=== PATIENT | male | born 1965 | race Hispanic/Latino ===

== ENCOUNTER 2016-12-15 10:03 | Inpatient (IN) | payer SELFPAY ==
[~2016-12-15] VITALS: Ht 177.8 cm; Wt 100.9 kg
[2016-12-15 10:27] VITALS: BP 129/84; TEMP 98.8
[2016-12-15] MEDS ORDERED: INDOMETHACIN50 MG PO (10:28)
[2016-12-15 11:17] LABS: PLATELET COUNT 292 K/uL (142-355)
[2016-12-15 11:32] LABS: POTASSIUM 3.5 mmol/L (3.6-5.2); SODIUM 138 mmol/L (136-145)
[2016-12-15 16:00] VITALS: BP 113/65; TEMP 98.7
[2016-12-15 17:53] VITALS: BP 106/67; TEMP 98.1; Ht 177.8 cm; Wt 100.9 kg
--- NOTE | 2016-12-15 18:18 | NUR ---
PT ARRIVED TO ROOM 103 FROM ER AT 1334 BY WHEELCHAIR, ACCOMPANIED BY LANDY GLASER, RN, PT ORIENTED TO PERSON, PLACE AND TIME, PT C/O PAIN TO LEFT FOOT, POSITIONED IN BED WITH BLE ELEVATED, PT C/O PAIN TO LEFT FOOT PRS 7, IVF ATTEMPTED IN PRESENT IV, IV INFILTRATED, IV D/C'D AND NEW IV STARTED AFTER 3RD ATTEMPT, IVF INFUSING WITHOUT DIFFICULTY AT THIS TIME. PAIN MEDICINE GIVEN. PT RESTING QUIETLY. FAMILY IN ROOM TO ANSWER QUESTIONS ABOUT PTS HISTORY.
[2016-12-15] MEDS ORDERED: LORTAB 5-325 MG1 TAB PO (18:25)
[2016-12-15] MEDS ORDERED: XANAX XR1 MG OR (18:27)
[2016-12-15 20:00] VITALS: BP 117/54; TEMP 97.8
[2016-12-16] VITALS: BP 125/74; TEMP 99.5
[2016-12-16 04:00] VITALS: BP 125/80; TEMP 98.3
[2016-12-16 06:26] LABS: PLATELET COUNT 274 K/uL (142-355)
[2016-12-16 06:29] LABS: POTASSIUM 3.6 mmol/L (3.6-5.2); SODIUM 138 mmol/L (136-145)
[2016-12-16 08:00] VITALS: BP 116/64; TEMP 99
[2016-12-16 11:52] VITALS: BP 144/86; TEMP 98.9
[2016-12-16 15:57] VITALS: BP 148/89; TEMP 99
[2016-12-16 20:00] VITALS: BP 143/80; TEMP 98.5
[2016-12-17] VITALS: BP 110/71; TEMP 97.6
[2016-12-17 04:00] VITALS: BP 138/77; TEMP 98.5
[2016-12-17 05:57] LABS: POTASSIUM 3.5 mmol/L (3.6-5.2); SODIUM 138 mmol/L (136-145)
[2016-12-17 06:13] LABS: PLATELET COUNT 347 K/uL (142-355)
[2016-12-17 08:00] VITALS: BP 134/82; TEMP 97.8
--- NOTE | 2016-12-17 09:30 | NUR ---
WOUND DRAINING AT THIS TIME. CULTURE OBTAINED. MARIA E DINERO IN TO SEE WOUND AT THIS TIME. COVERED WITH TELFA AND STERILE 4X4'S. ENCOURAGED PT TO KEEP ELEVATED. PT VERBALIZED UNDERSTANDING. PT C/O PAIN TO IV SITE. IV DC'D WITH CANNULA INTACT AND SITE CARE PROVIDED. IV RESTARTED TO L FA WITH 20G ANGIOCATH. PT TOLERATED WELL. AT BS.
[2016-12-17 12:00] VITALS: BP 132/71; TEMP 98
[2016-12-17 16:00] VITALS: BP 150/83; TEMP 98
[2016-12-17 20:00] VITALS: BP 153/81; TEMP 101.3
[2016-12-18] VITALS (12 sets, daily range): BP systolic 99–154; BP diastolic 65–93; TEMP 97.8–100
[2016-12-18 06:00] LABS: PLATELET COUNT 365 K/uL (142-355)
[2016-12-18 06:49] LABS: POTASSIUM 3.9 mmol/L (3.6-5.2); SODIUM 139 mmol/L (136-145)
[2016-12-19] VITALS: BP 126/78; TEMP 99
[2016-12-19 03:15] LABS: POTASSIUM 3.9 mmol/L (3.6-5.2); SODIUM 138 mmol/L (136-145)
[2016-12-19 03:22] LABS: PLATELET COUNT 388 K/uL (142-355)
[2016-12-19 04:00] VITALS: BP 164/81; TEMP 99.2
[2016-12-19 08:00] VITALS: BP 143/85; TEMP 98.8
[2016-12-19 16:00] VITALS: BP 124/73; TEMP 98.7
[2016-12-19 20:00] VITALS: BP 117/72; TEMP 97.5
[2016-12-20] VITALS: BP 136/72; TEMP 98.2
[2016-12-20 04:00] VITALS: BP 130/70; TEMP 97.9
[2016-12-20 05:24] LABS: PLATELET COUNT 426 K/uL (142-355)
[2016-12-20 05:41] LABS: POTASSIUM 4.2 mmol/L (3.6-5.2); SODIUM 139 mmol/L (136-145)
[2016-12-20 08:00] VITALS: BP 134/88; TEMP 98.1
[2016-12-20 12:00] VITALS: BP 148/79; TEMP 97.6
[2016-12-20 16:00] VITALS: BP 163/91; TEMP 98
[2016-12-20 20:00] VITALS: BP 146/83; TEMP 98.1
[2016-12-21] VITALS: BP 139/75; TEMP 98.4
[2016-12-21 04:00] VITALS: BP 152/86; TEMP 98.2
[2016-12-21 05:25] LABS: PLATELET COUNT 453 K/uL (142-355)
[2016-12-21 05:48] LABS: POTASSIUM 3.3 mmol/L (3.6-5.2); SODIUM 139 mmol/L (136-145)
[2016-12-21 08:00] VITALS: BP 163/94; TEMP 98
[2016-12-21 12:00] VITALS: BP 144/94; TEMP 97.8
[2016-12-21 16:00] VITALS: BP 130/76; TEMP 97.5
[2016-12-21 20:00] VITALS: BP 121/73; TEMP 97.5
[2016-12-22] VITALS: BP 93/57; TEMP 97.7
[2016-12-22 04:00] VITALS: BP 176/53; TEMP 97.5
[2016-12-22 06:00] LABS: POTASSIUM 3.6 mmol/L (3.6-5.2); SODIUM 140 mmol/L (136-145)
[2016-12-22 06:11] LABS: PLATELET COUNT 434 K/uL (142-355)
[2016-12-22 08:00] VITALS: BP 131/78; TEMP 98.1
[2016-12-22 12:00] VITALS: BP 150/90; TEMP 98.1
[2016-12-22 16:00] VITALS: BP 127/83; TEMP 98.6
[2016-12-22 20:23] VITALS: BP 134/76; TEMP 98.8
[2016-12-23] VITALS (7 sets, daily range): BP systolic 133–149; BP diastolic 71–88; TEMP 97.9–98.7
[2016-12-23 06:29] LABS: POTASSIUM 4.2 mmol/L (3.6-5.2); SODIUM 137 mmol/L (136-145)
[2016-12-23 06:33] LABS: PLATELET COUNT 460 K/uL (142-355)
[2016-12-24 04:00] VITALS: BP 133/82; TEMP 98.4
[2016-12-24 06:31] LABS: PLATELET COUNT 482 K/uL (142-355)
[2016-12-24 06:42] LABS: POTASSIUM 4.4 mmol/L (3.6-5.2); SODIUM 140 mmol/L (136-145)
[2016-12-24 08:00] VITALS: BP 129/82; TEMP 98.5
[2016-12-24 12:00] VITALS: BP 127/82; TEMP 98.8
[2016-12-24 16:00] VITALS: BP 130/67; TEMP 98.6
[2016-12-24 20:00] VITALS: BP 146/82; TEMP 98.4
[2016-12-25] VITALS: BP 117/52; BP 138/78; TEMP 98.8
[2016-12-25 04:00] VITALS: BP 150/80; TEMP 98.5
[2016-12-25 05:56] LABS: PLATELET COUNT 439 K/uL (142-355)
[2016-12-25 06:08] LABS: POTASSIUM 4.2 mmol/L (3.6-5.2); SODIUM 138 mmol/L (136-145)
[2016-12-25 08:00] VITALS: BP 128/79; TEMP 98.4
[2016-12-25 12:00] VITALS: BP 135/86; TEMP 98.8
[2016-12-25 16:00] VITALS: BP 144/85; TEMP 98.7
[2016-12-25 20:00] VITALS: BP 139/70; TEMP 98.6
[2016-12-26] VITALS: BP 155/92; TEMP 98.8
[2016-12-26 04:00] VITALS: BP 141/84; TEMP 98.9
[2016-12-26 06:07] LABS: PLATELET COUNT 478 K/uL (142-355)
[2016-12-26 06:39] LABS: POTASSIUM 3.8 mmol/L (3.6-5.2); SODIUM 140 mmol/L (136-145)
[2016-12-26 08:00] VITALS: BP 120/81; TEMP 98.8
[2016-12-26 12:00] VITALS: BP 152/87; TEMP 99.2
[2016-12-26 15:59] VITALS: BP 158/94; TEMP 98.6
[2016-12-26 20:00] VITALS: BP 134/81; TEMP 98.6
[2016-12-27] VITALS: BP 129/78; TEMP 98.3
[2016-12-27 04:00] VITALS: BP 113/73; TEMP 98
--- NOTE | 2016-12-27 06:33 | NUR ---
12/27/2016 AT 0545CHANGED DRESSING TO WOUND ON L FOOT. APPLIED WET TO DRY WITH DAKIN'S SOLUTION, COVERED WITH GAUZE, AND WRAPPED WITH TRACY. PT MEDICATED BEFORE DRESSING CHANGE TO PREVENT PAIN. SOME DRAINAGE NOTED ON OLD DRESSING. WILL MONITOR.
[2016-12-27 08:00] VITALS: BP 105/69; TEMP 98.1
[2016-12-27 08:17] LABS: PLATELET COUNT 463 K/uL (142-355)
[2016-12-27 08:32] LABS: POTASSIUM 3.7 mmol/L (3.6-5.2); SODIUM 137 mmol/L (136-145)
--- NOTE | 2016-12-27 11:52 | NUR ---
@ 1100 DRESSING CHANGED TO LEFT FOOT WITH FAMILY AT BEDSIDE, DRESSING REMOVED, REPLACED WITH NEW DRESSING, KERLIX AND DAKINS 0.25% APPLIED TO WOUND AREA, DRY 4x4'S APPLIED, WRAPPED IN KOBAN. FAMILY STATED UNDERSTANDING OF DRESSING CHANGE. PT TOLERATED WELL. NAD NOTED AT THIS TIME.
[2016-12-27 12:00] VITALS: BP 115/68; TEMP 98.6
--- NOTE | 2016-12-27 14:51 | NUR ---
@1214 PT DISCHARGED TO HOME WITH FAMILY, IV D/C'D TIP INTACT, NO REDNESS, SWELLING OR EDEMA NOTED, PT TAKEN BY WHEELCHAIR TO PRIVATE VEHICLE, NAD NOTED, NO C/O VOICED.
== END 2016-12-27 14:21 | disposition home or self-care (01) | DRG 572 ==
LOC: ED 10:03 → MED/SURG 12:35
PROVIDERS: Emergency Medicine; Internal Medicine
PROC: 0JBR0ZZ Excision of Left Foot Subcutaneous Tissue and Fascia, Open Approach (ICD-10-PCS; principal; 2016-12-18)
PROC: 0JBR0ZZ Excision of Left Foot Subcutaneous Tissue and Fascia, Open Approach (ICD-10-PCS; 2016-12-19)
DX: L03.116 Cellulitis of left lower limb (principal); R31.9 Hematuria, unspecified; G47.09 Other insomnia; B95.61 Methicillin susceptible Staphylococcus aureus infection as the cause of diseases classified elsewhere
CPT/HCPCS: 36415; 80053; 80202; 80307; 81000; 82550; 83036; 83735; 84550; 85007; 85027; 87070; 87077; 87185; 87186; 87205; 94640; 94664; 94760; 96365; 96366; 96367; 96372; 96374; 96375; 96376; 99284; G0479; J0132; J0330; J0461; J0696; J1100; J1170; J1644; J1885; J2001; J2250; J2405; J2704; J2765; J2930; J3010; J3370; J3475; J3490; Q9963; S0028

== ENCOUNTER 2017-01-03 13:07 | Emergency (ER) | payer SELFPAY ==
[~2017-01-03] VITALS: Ht 177.8 cm; Wt 99.8 kg
[~2017-01-03 13:07] MED LIST: INDOMETHACIN50 MG PO; LORTAB 5-325 MG1 TAB PO; XANAX XR1 MG OR
[2017-01-03 14:39] LABS: PLATELET COUNT 269 K/uL (142-355)
[2017-01-03 18:14] VITALS: BP 130/86; TEMP 98.2
== END 2017-01-03 18:14 | disposition home or self-care (01) ==
LOC: ED 13:07
DX: M86.8X7 Other osteomyelitis, ankle and foot (principal); Z98.890 Other specified postprocedural states
CPT/HCPCS: 36415; 85027; 87040; 87205; 96365; 96375; 99284; J1885; J3370

== ENCOUNTER 2017-01-04 17:20 | Outpatient (CLI) | payer SELFPAY | END 2017-01-04 17:40 | disposition home or self-care (01) | LOC: INF 17:20 | DX: M86.079 Acute hematogenous osteomyelitis, unspecified ankle and foot (principal) | CPT/HCPCS: 96365; 96366; J3370 ==

== ENCOUNTER 2017-01-05 16:36 | Outpatient (CLI) | payer SELFPAY | END 2017-01-05 18:00 | disposition home or self-care (01) | LOC: INF 16:36 | DX: M86.079 Acute hematogenous osteomyelitis, unspecified ankle and foot (principal) | CPT/HCPCS: 96365; 96366; J3370 ==

== ENCOUNTER 2017-01-06 13:24 | Outpatient (CLI) | payer SELFPAY ==
[~2017-01-06] VITALS: Ht 177.8 cm; Wt 99.8 kg
== END 2017-01-06 19:38 | disposition home or self-care (01) ==
LOC: INF 13:24
DX: M86.9 Osteomyelitis, unspecified (principal)
CPT/HCPCS: 80202; 96365; 96366; J3370

== ENCOUNTER 2017-01-07 12:26 | Outpatient (CLI) | payer SELFPAY ==
[~2017-01-07] VITALS: Ht 177.8 cm; Wt 99.8 kg
[2017-01-07 12:30] VITALS: BP 140/91; TEMP 98
[2017-01-07 15:23] VITALS: BP 133/77; TEMP 98
== END 2017-01-07 19:03 | disposition home or self-care (01) ==
LOC: INF 12:26
DX: M86.079 Acute hematogenous osteomyelitis, unspecified ankle and foot (principal)
CPT/HCPCS: 96365; 96366; J3370

== ENCOUNTER 2017-01-08 14:46 | Outpatient (CLI) | payer SELFPAY ==
[~2017-01-08] VITALS: Ht 177.8 cm; Wt 99.8 kg
[2017-01-08 14:55] VITALS: BP 135/52; TEMP 98.6
[2017-01-08 17:06] VITALS: BP 148/89
== END 2017-01-08 16:00 | disposition home or self-care (01) ==
LOC: INF 14:46
DX: M86.9 Osteomyelitis, unspecified (principal)
CPT/HCPCS: 96365; 96366; J3370

== ENCOUNTER 2017-01-09 12:44 | Outpatient (CLI) | payer SELFPAY ==
[2017-01-09 12:55] VITALS: BP 121/73; TEMP 98
== END 2017-01-09 17:30 | disposition home or self-care (01) ==
LOC: INF 12:44
DX: M86.9 Osteomyelitis, unspecified (principal)
CPT/HCPCS: 36591; 80202

== ENCOUNTER 2017-02-11 09:40 | Outpatient (CLI) | payer OTHER | END 2017-02-11 19:06 | disposition home or self-care (01) | LOC: MRI 09:40 | DX: L03.116 Cellulitis of left lower limb (principal) | CPT/HCPCS: A9576 ==

== ENCOUNTER 2020-05-08 13:06 | Emergency (ER) | payer OTHER ==
[~2020-05-08] VITALS: Ht 177.8 cm; Wt 98.9 kg
[2020-05-08 13:32] VITALS: TEMP 98
[2020-05-08] MEDS ORDERED: GRALISE600 MG PO (13:39)
[2020-05-08] MEDS ORDERED: IBU-200200 MG PO (13:40)
[2020-05-08 14:17] VITALS: BP 166/89
== END 2020-05-08 14:17 | disposition home or self-care (01) ==
LOC: ED 13:06
DX: M54.5 Low back pain (principal); G89.29 Other chronic pain
CPT/HCPCS: 96372; 99283; J2270; J2930

== ENCOUNTER 2020-05-16 12:39 | Emergency (ER) | payer OTHER ==
[~2020-05-16] VITALS: Ht 177.8 cm; Wt 98.9 kg
[~2020-05-16 12:39] MED LIST changes: +GRALISE600 MG PO; +IBU-200200 MG PO
[2020-05-16 14:25] VITALS: BP 146/85; TEMP 97.2
== END 2020-05-16 14:25 | disposition home or self-care (01) ==
LOC: ED 12:39
DX: M54.41 Lumbago with sciatica, right side (principal)
CPT/HCPCS: 96372; 99283; J1885

== ENCOUNTER 2020-05-25 09:01 | Outpatient (CLI) | payer OTHER | END 2020-05-25 21:09 | disposition home or self-care (01) | LOC: MRI 09:01 | PROVIDERS: ATTEND Internal Medicine | DX: M54.41 Lumbago with sciatica, right side (principal) ==